=== PATIENT | male | born 1985 | race Caucasian/White ===

== ENCOUNTER 2025-03-30 17:15 | Inpatient (IN) | payer MEDICAID ==
[~2025-03-30] VITALS: Ht 177.8 cm; Wt 65.8 kg
[2025-03-30] MEDS ORDERED: NYSTATIN (PYXIS) 500,000 UNIT/5 ML ORAL.SUSP PO SCH (19:30)
[2025-03-30] MEDS ORDERED: CEFEPIME 1 GM VIAL ONE (19:36)
[2025-03-30] MEDS: CEFEPIME 1 GM in IV D5W 50 ML IV ONE (20:17)
[2025-03-30] MEDS: IV NS 0.9% 1,000 ML BAG IV ONE (20:17)
[2025-03-30 20:34] LABS: PLATELET COUNT (AUTO) 420 K/uL (150-450); RED BLOOD CELL COUNT(AUTO) 2.32 MIL/uL (4.5-6.0); RED CELL DISTRIBUTION WIDTH 17.2 % (11.5-15.0); WHITE BLOOD COUNT (AUTO) 2.5 K/uL (4.3-11.0)
[2025-03-30] MEDS ORDERED: VANCOMYCIN 1 GM /D5W 250 ML PB IV ONE (20:36)
[2025-03-30 20:37] LABS: CALCIUM, SERUM 7.6 mg/dL (8.5-10.1); CREATININE 1.1 mg/dL (0.6-1.3); SODIUM SERUM 130 mmol/L (136-145); UREA NITROGEN, BLOOD 35 mg/dL (7-18)
[2025-03-30 20:42] LABS: INR 1.27 (0.91-1.10)
[2025-03-30] MEDS: VANCOMYCIN 1 GM in IV D5W 250 ML IV ONE (20:45)
[2025-03-30 20:49] LABS: LACTIC ACID 2.5 mmol/L (0.4-2.0)
[2025-03-30 20:51] LABS: ASPARTATE AMINOTRANSFERASE 70 U/L (15-37); TOTAL PROTEIN, SERUM 7.0 g/dL (6.4-8.2)
[2025-03-30 21:15] LABS: LYMPHOCYTES % (MANUAL) 2 % (16-48); MONOCYTES % (MANUAL) 6 % (0-11.0); MYELOCYTES % 3 % (0-0); NEUTROPHILS % (MANUAL) 89 (42-76)
[2025-03-30 21:16] LABS: PLATELET ESTIMATE ADEQUATE
[2025-03-30] MEDS ORDERED: DOSING PER PHARMACY-VANCOMYCIN IV XX PRN (22:00)
[2025-03-30] MEDS ORDERED: ZOLPIDEM TARTRATE 5 MG TABLET PO PRN (22:00)
[2025-03-30] MEDS ORDERED: ONDANSETRON HCL/PF 4 MG/2 ML VIAL IVP PRN (22:00)
[2025-03-30] MEDS ORDERED: MAGNESIUM HYDROXIDE 30 ML UDC PO PRN (22:00)
[2025-03-30] MEDS ORDERED: MAG HYDROX/AL HYDROX/SIMETH 30 ML UDC PO PRN (22:00)
[2025-03-30 22:38] LABS: APPEARANCE,URINE CLEAR (CLEAR); BLOOD, URINE NEGATIVE Ery/uL (NEGATIVE); LEUKOCYTE ESTERASE ,URINE NEGATIVE (NEGATIVE); NITRITE, URINE NEGATIVE (NEGATIVE); UGLUCOSE NEGATIVE (NEGATIVE)
[2025-03-30 23:08] LABS: ADD URINE CULTURE NO
[2025-03-30 23:09] LABS: COARSE GRANULAR CASTS,URINE Moderate /LPF (None Seen); HYALINE CASTS, URINE Many /LPF (None Seen); SQUAMOUS EPITHELIAL CELL,UR 0-2 /HPF (None Seen)
[2025-03-30 23:10] LABS: HIV-1/2 ANTIBODY REACTIVE (NONREACTIVE)
[2025-03-31] VITALS (11 sets, daily range): BP systolic 99–120; BP diastolic 69–83; TEMP 97.3–98.2; O2SAT 99–100
[2025-03-31 06:58] LABS: CALCIUM, SERUM 7.3 mg/dL (8.5-10.1); CREATININE 0.8 mg/dL (0.6-1.3); PHOSPHORUS 4.7 mg/dL (2.5-4.9); SODIUM SERUM 133.0 mmol/L (136-145); UREA NITROGEN, BLOOD 32.0 mg/dL (7-18)
[2025-03-31 07:03] LABS: PLATELET COUNT (AUTO) 306 K/uL (150-450); RED BLOOD CELL COUNT(AUTO) 2.65 MIL/uL (4.5-6.0); RED CELL DISTRIBUTION WIDTH 16.8 % (11.5-15.0)
[2025-03-31 07:59] LABS: WHITE BLOOD COUNT (AUTO) 1.9 K/uL (4.3-11.0)
[2025-03-31] MEDS ORDERED: CEFEPIME 1 GM in IV D5W 50 ML IV SCH (09:00)
[2025-03-31] MEDS: HYDROCODONE/APAP 5/325MG TABLET PO PRN (09:37)
[2025-03-31] MEDS: Z GUARD REMEDY 4 OZ OINT TP PRN (10:30)
[2025-03-31] MEDS: PANTOPRAZOLE 40 MG TABLET.DR PO SCH (10:30)
[2025-03-31] MEDS: VANCOMYCIN 1 GM in IV D5W 250 ML IV SCH (10:30)
[2025-03-31] MEDS: CEFEPIME 2 GM in IV D5W 100 ML IV SCH (10:30)
[2025-03-31] MEDS: DAKINS QUARTER STRENGTH (0.125%) 480 ML BOTTLE TOP SCH (10:31)
[2025-03-31 12:20] LABS: OCCULT BLOOD STOOL NEGATIVE (NEGATIVE)
[2025-03-31 13:14] LABS: LYMPHOCYTES % (MANUAL) 4 % (16-48); MONOCYTES % (MANUAL) 2 % (0-11.0); NEUTROPHILS % (MANUAL) 94 (42-76); PLATELET ESTIMATE ADEQUATE
[2025-03-31] MEDS ORDERED: IOHEXOL-300 100 ML VIAL IV ONE (15:46)
[2025-03-31] MEDS: ENSURE ENLIVE CHOC 237 ML CAN PO SCH (16:25)
[2025-03-31] MEDS: PROSOURCE / PROSTAT (PYXIS) 30 ML UDC PO SCH (16:26)
[2025-03-31] MEDS: IV NS 0.9% 1,000 ML IV PRN (17:42)
[2025-03-31 19:08] LABS: RHEUMATOID FACTOR SCREEN NEGATIVE (NEGATIVE)
[2025-03-31 19:09] LABS: IRON, SERUM 21.0 ug/dl (50-175)
[2025-03-31 21:14] LABS: FIBRINOGEN ACTIVITY 477.0 Mg/dL (213-485); INR 1.16 (0.91-1.10)
[2025-03-31] MEDS: METRONIDAZOLE 500MG/ NS 100ML 500 MG in PREMIX 1 EA IV SCH (21:26)
[2025-03-31] MEDS: SULFAMETH/TRIMETH 800/160 MG 1 UDTAB TABLET PO SCH (21:26)
[2025-04-01] VITALS: BP 98/67; TEMP 98.2; O2SAT 100
[2025-04-01 02:10] LABS: *BASOS 0 % (Not Estab.); *BASOS, ABSOLUTE 0.0 x10E3/uL (0.0-0.2); *COMMENTS Note: (.); *EOS 0 % (Not Estab.); *EOS, ABSOLUTE 0.0 x10E3/uL (0.0-0.4); *IMMATURE GRANULOCYTES 2 % (Not Estab.); *IMMATURE GRANULOCYTES(ABS) 0.1 x10E3/uL (0.0-0.1); *LYMPHOCYTES 7 % (Not Estab.); *LYMPHS, ABSOLUTE 0.2 x10E3/uL (0.7-3.1); *MCH 25.3 pg (26.6-33.0); *MCHC 28.9 g/dL (31.5-35.7); *MCV 88 fL (79-97); *MONOCYTES 4 % (Not Estab.); *MONOS, ABSOLUTE 0.1 x10E3/uL (0.1-0.9); *NEUTROPHILS 87 % (Not Estab.); *NEUTROPHILS, ABSOLUTE 2.3 x10E3/uL (1.4-7.0); *PLT 366 x10E3/uL (150-450); *RBC 2.33 x10E6/uL (4.14-5.80); *RDW 15.5 % (11.6-15.4); *WBC 2.6 x10E3/uL (3.4-10.8)
[2025-04-01 02:41] LABS: *HGB 5.9 g/dL (13.0-17.7)
[2025-04-01 04:00] VITALS: BP 104/69; TEMP 98.1; O2SAT 100
[2025-04-01 08:00] VITALS: BP 108/66; TEMP 98.4; O2SAT 97
[2025-04-01 08:02] LABS: ASPARTATE AMINOTRANSFERASE 65.0 U/L (15-37); CALCIUM, SERUM 7.3 mg/dL (8.5-10.1); CREATININE 0.7 mg/dL (0.6-1.3); PHOSPHORUS 2.7 mg/dL (2.5-4.9); SODIUM SERUM 131.0 mmol/L (136-145); TOTAL PROTEIN, SERUM 6.3 g/dL (6.4-8.2); UREA NITROGEN, BLOOD 22.0 mg/dL (7-18)
[2025-04-01 08:15] LABS: PLATELET COUNT (AUTO) 312 K/uL (150-450); RED BLOOD CELL COUNT(AUTO) 2.62 MIL/uL (4.5-6.0); RED CELL DISTRIBUTION WIDTH 17.1 % (11.5-15.0); WHITE BLOOD COUNT (AUTO) 3.2 K/uL (4.3-11.0)
[2025-04-01 09:08] LABS: CREATINE KINASE, TOTAL 45.0 U/L (39-308)
[2025-04-01 10:43] LABS: LDL 35 mg/dL (0-99)
[2025-04-01 11:10] LABS: *% CD 4 POS. LYMPH 8.7 % (30.8-58.5); *% CD 8 POS. LYMPH 68.7 % (12.0-35.5); *ABSOLUTE CD 4 HELPER 17 /uL (359-1519); *ABSOLUTE CD 8 SUPPRESSOR 137 /uL (109-897); *CD4/CD8 RATIO 0.13 (0.92-3.72)
[2025-04-01 12:00] VITALS: BP 109/65; TEMP 97.7; O2SAT 97
[2025-04-01] MEDS: LEVOFLOXACIN 750 MG /D5W 150ML 150 ML IV SCH (13:00)
[2025-04-01] MEDS: SULFAMETHOXAZOLE/TRIMETHOPRIM 15 ML in IV D5W 250 ML IV SCH (13:00)
[2025-04-01 13:28] LABS: BAND % (MANUAL) 2 % (0.0-5.0); BASOPHILS % (MANUAL) 0 % (0.0-2.0); EOSINOPHILS % (MANUAL) 0 % (0-4); LYMPHOCYTES % (MANUAL) 5 % (16-48); MONOCYTES % (MANUAL) 2 % (0-11.0); NEUTROPHILS % (MANUAL) 91 (42-76); PLATELET ESTIMATE ADEQUATE
[2025-04-01 16:00] VITALS: BP 99/67; TEMP 97.9; O2SAT 99
[2025-04-01 16:17] LABS: APPEARANCE,URINE CLEAR (CLEAR); BLOOD, URINE NEGATIVE Ery/uL (NEGATIVE); LEUKOCYTE ESTERASE ,URINE NEGATIVE (NEGATIVE); NITRITE, URINE NEGATIVE (NEGATIVE); UGLUCOSE NEGATIVE (NEGATIVE)
[2025-04-01] MEDS: NYSTATIN (PYXIS) 500,000 UNIT/5 ML ORAL.SUSP PO SCH (17:17)
[2025-04-01 20:00] VITALS: BP 115/68; TEMP 97.7; O2SAT 100
[2025-04-01] MEDS: FLUCONAZOLE (100 MG) 100 MG TABLET PO SCH (20:28)
[2025-04-01] MEDS: ACYCLOVIR 800 MG TABLET PO SCH (21:18)
[2025-04-02] VITALS (9 sets, daily range): BP systolic 99–116; BP diastolic 61–83; TEMP 97.3–98; O2SAT 97–100
[2025-04-02 03:10] LABS: HEPATITIS B CORE AB, TOTAL Positive (Negative)
[2025-04-02 05:08] LABS: FOLIC ACID 5.9 ng/mL (>3.0); IMMUNOGLOBULIN A, SERUM 707 mg/dL (90-386); IMMUNOGLOBULIN M, SERUM 55 mg/dL (20-172)
[2025-04-02 06:11] LABS: PTH, INTACT 25 pg/mL (15-65)
[2025-04-02 08:07] LABS: *SPE A/G RATIO 0.3 (0.7-1.7); *SPE ALBUMIN 1.4 g/dL (2.9-4.4); *SPE ALPHA-1-GLOBULIN 0.5 g/dL (0.0-0.4); *SPE ALPHA-2-GLOBULIN 1.0 g/dL (0.4-1.0); *SPE BETA GLOBULIN 1.2 g/dL (0.7-1.3); *SPE GLOBULIN, TOTAL 4.2 g/dL (2.2-3.9); *SPE M-SPIKE Not Observed g/dL (Not Observed); *SPE PROTEIN TOTAL 5.6 g/dL (6.0-8.5); *SPEGAMMA GLOBULIN 1.6 g/dL (0.4-1.8)
[2025-04-02 08:07] LABS: *SPE A/G RATIO 0.3 (0.7-1.7); *SPE ALBUMIN 1.5 g/dL (2.9-4.4); *SPE ALPHA-1-GLOBULIN 0.5 g/dL (0.0-0.4); *SPE ALPHA-2-GLOBULIN 1.1 g/dL (0.4-1.0); *SPE BETA GLOBULIN 1.3 g/dL (0.7-1.3); *SPE GLOBULIN, TOTAL 4.5 g/dL (2.2-3.9); *SPE M-SPIKE Not Observed g/dL (Not Observed); *SPE PROTEIN TOTAL 6.0 g/dL (6.0-8.5); *SPEGAMMA GLOBULIN 1.6 g/dL (0.4-1.8)
[2025-04-02 08:10] LABS: PLATELET COUNT (AUTO) 269 K/uL (150-450); RED BLOOD CELL COUNT(AUTO) 2.91 MIL/uL (4.5-6.0); RED CELL DISTRIBUTION WIDTH 16.4 % (11.5-15.0); WHITE BLOOD COUNT (AUTO) 4.0 K/uL (4.3-11.0)
[2025-04-02] MEDS: EMTRICITABINE/TENOFOVIR 1 TAB PO SCH (09:18)
[2025-04-02] MEDS: RALTEGRAVIR POTASSIUM 400 MG TABLET PO SCH (09:18)
[2025-04-02 09:21] LABS: CALCIUM, SERUM 7.1 mg/dL (8.5-10.1); CREATININE 0.7 mg/dL (0.6-1.3); PHOSPHORUS 2.4 mg/dL (2.5-4.9); SODIUM SERUM 131.0 mmol/L (136-145); UREA NITROGEN, BLOOD 16.0 mg/dL (7-18)
[2025-04-02 12:07] LABS: FREE KAPPA LT CHAINS SERUM 110.9 mg/L (3.3-19.4); FREE LAMBDA LT CHAIN SERUM 98.9 mg/L (5.7-26.3); KAPPA/LAMBDA RATIO SERUM 1.12 (0.26-1.65)
[2025-04-02 14:11] LABS: *HIV-1 log10 RNA 5.407 (.)
[2025-04-02] MEDS: K PHOS NEUTRAL 250 MG TABLET PO ONE (16:38)
[2025-04-03 04:00] VITALS: BP 112/76; TEMP 97.8; O2SAT 100
[2025-04-03 07:33] LABS: PLATELET COUNT (AUTO) 272 K/uL (150-450); RED BLOOD CELL COUNT(AUTO) 3.14 MIL/uL (4.5-6.0); RED CELL DISTRIBUTION WIDTH 17.6 % (11.5-15.0); WHITE BLOOD COUNT (AUTO) 7.0 K/uL (4.3-11.0)
[2025-04-03 07:41] LABS: CALCIUM, SERUM 7.2 mg/dL (8.5-10.1); CREATININE 0.6 mg/dL (0.6-1.3); SODIUM SERUM 131.0 mmol/L (136-145); UREA NITROGEN, BLOOD 13.0 mg/dL (7-18)
[2025-04-03 07:56] LABS: PHOSPHORUS 2.1 mg/dL (2.5-4.9)
[2025-04-03] MEDS: K PHOS NEUTRAL 250 MG TABLET PO ONE (11:13)
[2025-04-03] MEDS: SODIUM ZIRCONIUM CYCLOSILICATE 10 GM POWD.PACK PO SCH (11:14)
[2025-04-03] MEDS: METRONIDAZOLE 500 MG TABLET PO SCH (12:42)
[2025-04-03 15:07] LABS: *HIV-1 RNA BY PCR 331000.0 copies/mL (.); *HIV-1 log10 RNA 5.52 (.)
[2025-04-03 15:09] LABS: CALCIUM, SERUM 6.8 mg/dL (8.5-10.1); CREATININE 0.7 mg/dL (0.6-1.3); SODIUM SERUM 132.0 mmol/L (136-145); UREA NITROGEN, BLOOD 9.0 mg/dL (7-18)
[2025-04-03 16:00] VITALS: BP 116/79; TEMP 98.1; O2SAT 96
[2025-04-03] MEDS: SODIUM CHLORIDE 1000 MG TABLET PO SCH (16:44)
[2025-04-03] MEDS: IV NS 0.9% 1,000 ML IV PRN (18:22)
[2025-04-03 20:00] VITALS: BP 115/70; TEMP 97.6; O2SAT 98
[2025-04-03] MEDS: ATOVAQUONE 750 MG/5 ML UDC PO SCH (21:04)
[2025-04-04 04:00] VITALS: BP 120/80; TEMP 98; O2SAT 99
[2025-04-04 08:00] VITALS: BP 82/62; TEMP 98.5; O2SAT 96
[2025-04-04] MEDS: LEVOFLOXACIN (250MG) 250 MG TABLET PO SCH (09:03)
[2025-04-04 16:00] VITALS: BP 112/69; TEMP 98.3; O2SAT 96
[2025-04-04] MEDS: ACETAMINOPHEN 325 MG TABLET PO PRN (17:41)
[2025-04-04 19:26] LABS: PLATELET COUNT (AUTO) 164 K/uL (150-450); RED BLOOD CELL COUNT(AUTO) 2.91 MIL/uL (4.5-6.0); RED CELL DISTRIBUTION WIDTH 17.0 % (11.5-15.0); WHITE BLOOD COUNT (AUTO) 7.2 K/uL (4.3-11.0)
[2025-04-04 19:53] LABS: CALCIUM, SERUM 7.0 mg/dL (8.5-10.1); CREATININE 1.0 mg/dL (0.6-1.3); SODIUM SERUM 135.0 mmol/L (136-145); UREA NITROGEN, BLOOD 18.0 mg/dL (7-18)
[2025-04-04 20:00] VITALS: BP 110/81; TEMP 97.9; O2SAT 95
[2025-04-04] MEDS: ZOLPIDEM TARTRATE 5 MG TABLET PO PRN (21:43)
[2025-04-05 04:00] VITALS: BP 106/74; TEMP 98.2; O2SAT 95
[2025-04-05 08:05] VITALS: BP 110/72; TEMP 100.2; O2SAT 100
[2025-04-05 08:08] LABS: PLATELET COUNT (AUTO) 192 K/uL (150-450); RED BLOOD CELL COUNT(AUTO) 2.93 MIL/uL (4.5-6.0); RED CELL DISTRIBUTION WIDTH 16.8 % (11.5-15.0); WHITE BLOOD COUNT (AUTO) 9.3 K/uL (4.3-11.0)
[2025-04-05 08:13] LABS: CALCIUM, SERUM 7.1 mg/dL (8.5-10.1); CREATININE 0.7 mg/dL (0.6-1.3); SODIUM SERUM 133.0 mmol/L (136-145); UREA NITROGEN, BLOOD 17.0 mg/dL (7-18)
[2025-04-05] MEDS: SILVER SULFADIAZINE 50 GM JAR TP SCH (14:30)
[2025-04-05 16:00] VITALS: BP 102/70; TEMP 98.2; O2SAT 96
[2025-04-05 19:06] LABS: *MYCOPLASMA PNEUMONIAE IgG <100 U/mL (0-99); *MYCOPLASMA PNEUMONIAE IgM <770 U/mL (0-769)
[2025-04-05 20:00] VITALS: BP 99/60; TEMP 98.1; O2SAT 97
[2025-04-06 04:00] VITALS: BP 109/62; TEMP 98.3; O2SAT 96
[2025-04-06 08:00] VITALS: BP 128/73; TEMP 98.4; O2SAT 93
[2025-04-06 08:46] LABS: PLATELET COUNT (AUTO) 199 K/uL (150-450); RED BLOOD CELL COUNT(AUTO) 3.00 MIL/uL (4.5-6.0); RED CELL DISTRIBUTION WIDTH 16.9 % (11.5-15.0); WHITE BLOOD COUNT (AUTO) 10.2 K/uL (4.3-11.0)
[2025-04-06 11:32] LABS: ASPARTATE AMINOTRANSFERASE 49.0 U/L (15-37); CALCIUM, SERUM 7.2 mg/dL (8.5-10.1); CREATININE 0.7 mg/dL (0.6-1.3); SODIUM SERUM 132.0 mmol/L (136-145); TOTAL PROTEIN, SERUM 5.9 g/dL (6.4-8.2); UREA NITROGEN, BLOOD 12.0 mg/dL (7-18)
[2025-04-06 12:07] LABS: PHOSPHORUS 0.9 mg/dL (2.5-4.9)
[2025-04-06] MEDS: NEUTRA PHOS 1 POWD.PACKET PO ONE (13:06)
[2025-04-06 16:00] VITALS: BP 124/79; TEMP 97.7; O2SAT 94
[2025-04-06 16:07] LABS: LEGIONELLA PNEUMOPHILIA AB Non Reactive (Non Reactive)
[2025-04-06 20:00] VITALS: BP 98/64; TEMP 98.1; O2SAT 95
[2025-04-07 04:00] VITALS: BP 116/76; TEMP 101.8; O2SAT 95
[2025-04-07 08:00] VITALS: BP 116/76; TEMP 101.8; O2SAT 95
[2025-04-07 08:18] LABS: PLATELET COUNT (AUTO) 207 K/uL (150-450); RED BLOOD CELL COUNT(AUTO) 2.99 MIL/uL (4.5-6.0); RED CELL DISTRIBUTION WIDTH 16.9 % (11.5-15.0); WHITE BLOOD COUNT (AUTO) 9.6 K/uL (4.3-11.0)
[2025-04-07 09:17] LABS: ASPARTATE AMINOTRANSFERASE 49.0 U/L (15-37); CALCIUM, SERUM 7.2 mg/dL (8.5-10.1); CREATININE 0.8 mg/dL (0.6-1.3); PHOSPHORUS 1.4 mg/dL (2.5-4.9); SODIUM SERUM 134.0 mmol/L (136-145); TOTAL PROTEIN, SERUM 6.0 g/dL (6.4-8.2); UREA NITROGEN, BLOOD 13.0 mg/dL (7-18)
[2025-04-07] MEDS ORDERED: MAGNESIUM OXIDE 400 MG TABLET PO SCH (11:00)
[2025-04-07] MEDS: NEUTRA PHOS 1 POWD.PACKET PO ONE (11:05)
== END 2025-04-07 14:10 | disposition left against medical advice (07) | DRG 890 ==
LOC: ER 17:24 → TELE 20:32 → TELE1 21:24 → MEDSG1 04-01 17:14
PROVIDERS: ADMIT Nurse Practitioner Acute Care; ATTEND Nurse Practitioner Acute Care
PROC: 30233N1 Transfusion of Nonautologous Red Blood Cells into Peripheral Vein, Percutaneous Approach (ICD-10-PCS; principal; 2025-03-31)
DX: A41.9 Sepsis, unspecified organism (principal); J15.9 Unspecified bacterial pneumonia; B20 Human immunodeficiency virus [HIV] disease; B25.8 Other cytomegaloviral diseases; L89.213 Pressure ulcer of right hip, stage 3; R65.20 Severe sepsis without septic shock; E43 Unspecified severe protein-calorie malnutrition; B37.0 Candidal stomatitis; A08.39 Other viral enteritis; K92.2 Gastrointestinal hemorrhage, unspecified; D63.8 Anemia in other chronic diseases classified elsewhere; F29 Unspecified psychosis not due to a substance or known physiological condition; F14.10 Cocaine abuse, uncomplicated; E88.A Wasting disease (syndrome) due to underlying condition; E87.1 Hypo-osmolality and hyponatremia; Z59.02 Unsheltered homelessness; F17.210 Nicotine dependence, cigarettes, uncomplicated; G62.9 Polyneuropathy, unspecified; E87.5 Hyperkalemia; Z53.29 Procedure and treatment not carried out because of patient's decision for other reasons; F15.10 Other stimulant abuse, uncomplicated; F11.10 Opioid abuse, uncomplicated; R15.9 Full incontinence of feces; S70.02XA Contusion of left hip, initial encounter; X58.XXXA Exposure to other specified factors, initial encounter; Y92.410 Unspecified street and highway as the place of occurrence of the external cause; L24.A2 Irritant contact dermatitis due to fecal, urinary or dual incontinence; E86.0 Dehydration; I21.A1 Myocardial infarction type 2; D64.9 Anemia, unspecified; Z68.20 Body mass index [BMI] 20.0-20.9, adult; E88.09 Other disorders of plasma-protein metabolism, not elsewhere classified; I51.4 Myocarditis, unspecified; R32 Unspecified urinary incontinence; E87.20 Acidosis, unspecified; E83.39 Other disorders of phosphorus metabolism; E86.1 Hypovolemia; R62.7 Adult failure to thrive; R26.2 Difficulty in walking, not elsewhere classified; R80.9 Proteinuria, unspecified
CPT/HCPCS: 36415; 71045-TC; 71250-TC; 71260-TC; 73590-TC; 80048-TC; 80053-TC; 80061-TC; 80076-TC; 80202-TC; 81001; 82272-TC; 82550-TC; 82607-TC; 82728-TC; 82784; 83010; 83540-TC; 83605-TC; 83615-TC; 83735-TC; 83935-TC; 83970; 84100-TC; 84155; 84165; 84300-TC; 84443-TC; 84484-TC; 84550-TC; 85025-TC; 85027-TC; 85045-TC; 85396; 85730-TC; 86225; 86235; 86317; 86334; 86360; 86431-TC; 86480; 86704; 86713; 86738; 86803; 86850-TC; 86880-TC; 87040-TC; 87045-TC; 87081-TC; 87086-TC; 87116; 87206; 87340; 87449; 87496; 87536; 87806; 87899; 89055; 93307-TC; 97110-TC; 97112-TC; 97530-TC; A4216; A4223; A6253; A6254; G0378; J0692; J1570; J1956; J2865; J3373; J7030; J7050; J7060; P9016; Q9967